=== PATIENT | male | born 1975 | race Caucasian/White ===

== ENCOUNTER 2016-11-23 11:46 | Emergency (ER) | payer SELFPAY ==
[~2016-11-23] VITALS: Ht 165.1 cm; Wt 95.1 kg
[2016-11-23 11:52] VITALS: BP 169/120
[2016-11-23] MEDS ORDERED: ONDANSETRON 2MG/ML, 2ML IVPush ONE (12:30)
[2016-11-23] MEDS ORDERED: SODIUM CHLORIDE 0.9% 1,000ML IVBOLUS ONE (12:30)
[2016-11-23] MEDS ORDERED: THIAMINE 100MG TABLET PO ONE (12:30)
[2016-11-23] MEDS ORDERED: THIAMINE 100MG TABLET ONE (12:40)
[2016-11-23] MEDS ORDERED: ONDANSETRON 2MG/ML, 2ML ONE (12:41)
[2016-11-23 13:08] LABS: HEMOGLOBIN 17.8 g/dL (13.7-18.0)
[2016-11-23 13:20] LABS: BLOOD UREA NITROGEN 8 mg/dL (7-18)
[2016-11-23 13:24] LABS: ASPARTATE AMINO TRANSFERASE 25 U/L (15-37)
== END 2016-11-23 14:21 | disposition home or self-care (01) ==
LOC: ED 12:21
DX: F10.180 Alcohol abuse with alcohol-induced anxiety disorder (principal); E87.6 Hypokalemia; F12.10 Cannabis abuse, uncomplicated
CPT/HCPCS: 36415; 80053; 85025; 93005; 96361; 96374; 99285; J2405; J7030